=== PATIENT | female | born 1955 | race Caucasian/White ===

== ENCOUNTER 2017-11-26 15:27 | Emergency (ER) | payer OTHER ==
[2017-11-26] MEDS ORDERED: Albuterol/Ipratropium 3.0-0.5 MG/3 ML Neb Soln NEB ONE (15:57)
[2017-11-26] MEDS ORDERED: methylPREDNISolone Sodium Succinate 125 MG/2 ML SDV IVPUSH ONE (15:57)
[2017-11-26] MEDS ORDERED: Oseltamivir 75 MG Cap PO ONE (15:58)
--- NOTE | 2017-11-26 16:00 | EDM.PDOC ---
ED HPI GENERAL MEDICAL PROBLEM - General Chief Complaint: Respiratory Problem Stated Complaint: INFLU A POSITIVE AND SOB Time Seen by Provider: 11/26/17 15:46 Source of Information: Reports: Patient, Family History Limitations: Reports: Respiratory Distress - History of Present Illness INITIAL COMMENTS - FREE TEXT/NARRATIVE: 62 years old w f with COPD, smoker, was transferred from [facility] to the ed due to SOB and testing pos for influenza A. An arrival to the ed. Pt could speac 2- 3 word sentences, had exp wheezing with poor air movement and occ a nonprod cough. Puls ox was 92. Pt was on home O2 in the past. Pt had a tmep of 102 at the clinic. No N/V/D or any other acute med. issues. Her mom and passed recently away. BP 120/71 pulse 123 Temp 39.1 RR 24 Pulse ox 93% Onset Date: 11/24/17 Onset Time: 14:00 Duration: Day(s):, Getting Worse, Intermittent Location: Reports: Chest Quality: Reports: Same as Previous Episode (getting) Severity: Moderate Improves with: Reports: Medication Worsens with: Reports: Movement Context: Reports: Sick Contact (Influenza A), Other Associated Symptoms: Reports: Cough, Shortness of Breath Generalized Pain Score (Numeric/FACES): 7 - Related Data Allergies Allergy/AdvReac Type Severity Reaction Status Date / Time amoxicillin [From Augmentin] Allergy Diarrhea Verified 11/26/17 15:40 clavulanic acid Allergy Diarrhea Verified 11/26/17 15:40 [From Augmentin] Home Meds: Home Meds Albuterol Sulfate 2.5 mg IH Q4HR PRN #1 box 11/26/17 [Rx] Escitalopram [Lexapro] 20 mg PO BEDTIME 11/26/17 [History] Levothyroxine Sodium [Synthroid] 200 mcg DAILY 11/26/17 [History] Nortriptyline 25 mg PO BEDTIME 11/26/17 [History] Oseltamivir [Tamiflu] 75 mg PO BID #9 cap 11/26/17 [Rx] Valsartan/Hydrochlorothiazide [Valsartan-Hctz 160-25 mg Tab] 1 tab DAILY [History] Zolpidem [Ambien] 5 mg PO BEDTIME PRN 11/26/17 [History] predniSONE [Prednisone] 20 mg PO BID #6 tablet 11/26/17 [Rx] predniSONE [Prednisone] 20 mg PO DAILY #3 tablet 11/26/17 [Rx] rOPINIRole [Requip] 2 mg PO BEDTIME 11/26/17 [History] Past Medical History HEENT History: Reports: None Cardiovascular History: Reports: Hypertension Respiratory History: Reports: COPD, Pneumonia, Recurrent Genitourinary History: Reports: None 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/BYN History: G3 Musculoskeletal History: Reports: Arthritis, Back Pain, Chronic, Neck Pain, Chronic Psychiatric History: Reports: Anxiety, Depression, Panic Attack Endocrine/Metabolic History: Reports: Hypothyroidism, Obesity/BMI 30+ Hematologic History: Reports: Anemia - Infectious Disease History Infectious Disease History: Reports: Chicken Pox - Past Surgical History HEENT Surgical History: Reports: Oral Surgery Cardiovascular Surgical History: Reports: None Respiratory Surgical History: Reports: None GI Surgical History: Reports: Appendectomy Female Surgical History: Reports: Section, Hysterectomy, Salpingo- Oophorectomy Musculoskeletal Surgical History: Reports: Joint Replacement Other Musculoskeletal Surgeries/Procedures:: R knee replacement Social & Family History - Family History Family Medical History: Noncontributory ED ROS GENERAL - Review of Systems Review Of Systems: See Below Constitutional: Reports: No Symptoms HEENT: Reports: No Symptoms Respiratory: Reports: Shortness of Breath, Cough Cardiovascular: Reports: No Symptoms Endocrine: Reports: No Symptoms GI/Abdominal: Reports: No Symptoms : Reports: No Symptoms Musculoskeletal: Reports: No Symptoms Skin: Reports: No Symptoms Neurological: Reports: No Symptoms Psychiatric: Reports: No Symptoms Hematologic/Lymphatic: Reports: No Symptoms Immunologic: Reports: No Symptoms ED EXAM, GENERAL - Physical Exam Exam: See Below Exam Limited By: Respiratory Distress General Appearance: Alert, WD/WN, Moderate Distress Eye Exam: Bilateral Eye: Normal Inspection Ears: Normal External Exam Ear Exam: Bilateral Ear: Auricle Normal Nose: Normal Inspection, Normal Mucosa, No Blood, Clear Rhinorrhea Throat/Mouth: Normal Inspection, Normal Lips Head: Atraumatic, Normocephalic Neck: Normal Inspection, Supple, Non-Tender, Full Range of Motion Respiratory/Chest: Respiratory Distress, Decreased Breath Sounds, Rhonchi, Wheezing Cardiovascular: Normal Peripheral Pulses, Regular Rate, Rhythm, No Edema, No Gallop, No Rub Peripheral Pulses: 1+: Radial (L) GI/Abdominal: Normal Bowel Sounds, Soft, Non-Tender, No Organomegaly, No Abnormal Bruit (Female) Exam: Deferred Rectal (Female) Exam: Deferred Back Exam: Normal Inspection, Full Range of Motion Extremities: Normal Inspection, Normal Range of Motion, Non-Tender, No Pedal Edema Neurological: Alert, Oriented, CN II-XII Intact, Normal Cognition, Normal Gait, No Motor/Sensory Deficits Psychiatric: Normal Affect, Normal Mood Skin Exam: Warm Lymphatic: No Adenopathy Course - Vital Signs Text/Narrative:: 62 years old w f with COPD, smoker, was transferred from [facility] to the ed due to SOB and testing pos for influenza A. An arrival to the ed. Pt could speac 2- 3 word sentences, had exp wheezing with poor air movement and occ a nonprod cough. Puls ox was 92. Pt was on home O2 in the past. Pt had a tmep of 102 at the clinic. No N/V/D or any other acute med. issues. Her mom and passed recently away. BP 120/71 pulse 123 Temp 39.1 RR 24 Pulse ox 93% PE: Acute COPD exacerbation with chronic bronchitis. Influenza A positive. Imaging: CXR: COPD, NAD Labs: Nl WBC Na 131 K 3.6 Impression: COPD exacerbation, Hyponatremia, chronic bronchitis Tx: Duoneb x 1 Albuterol Tx nebs x 3, Solu medrol 125 i.v Toradol 30 mg i.v Reexam: Improved 60% Plan: Home nebulizer set up in by [facility] in am the pt's home. Pt will use a inhaler tonight. She was d/c'd with instructions Last Recorded V/S: Last Vital Signs Temp 38.2 C H 11/26/17 17:30 Pulse 123 H 11/26/17 15:46 Resp 20 11/26/17 17:30 BP 123/68 11/26/17 17:30 Pulse Ox 94 L 11/26/17 17:30 - Orders/Labs/Meds Orders: Active Orders 24 hr Category Date Time Status RT Aerosol Therapy [RC] ASDIRECTED Care 11/26/17 15:58 Active RT Aerosol Therapy [RC] ASDIRECTED Care 11/26/17 16:49 Active RT Aerosol Therapy [RC] ASDIRECTED Care 11/26/17 17:30 Active RT Aerosol Therapy [RC] ASDIRECTED Care 11/26/17 18:16 Active Chest 2V [CR] Stat Exams 11/26/17 15:53 Taken CULTURE BLOOD [BC] Urgent Lab 11/26/17 16:05 Received Sodium Chloride 0.9% [Saline Flush] Med 11/26/17 16:29 Active 10 ml FLUSH ASDIRECTED PRN Blood Culture x2 Reflex Set [OM.PC] Urgent Oth 11/26/17 15:56 Ordered Peripheral IV Insertion Adult [OM.PC] Routine Oth 11/26/17 16:29 Ordered Medication Orders Sodium Chloride (Saline Flush) 10 ml FLUSH ASDIRECTED PRN PRN Reason: Keep Vein Open Last Admin: 11/26/17 16:25 Dose: 10 ml Labs: Laboratory Tests 11/26/17 11/26/17 11/26/17 Range/Units 16:05 16:05 16:05 WBC 7.4 (4.5-12.0) X10-3/uL RBC 4.11 (3.23-5.20) x10(6)uL Hgb 12.6 (11.5-15.5) g/dL Hct 37.2 (30.0-51.3) % MCV 90.5 (80-96) fL MCH 30.6 (27.7-33.6) pg MCHC 33.8 (32.2-35.4) g/dL RDW 13.0 (11.5-15.5) % Plt Count 230 (125-369) X10(3)uL MPV 10.0 (7.4-10.4) fL Neut % (Auto) 84.9 H (46-82) % Lymph % (Auto) 7.1 L (13-37) % [place] % (Auto) 5.8 (4-12) % Eos % (Auto) 0 L (1.0-5.0) % Baso % (Auto) 2 (0-2) % Neut # (Auto) 6.4 (1.6-8.3) # Lymph # (Auto) 0.5 L (0.6-5.0) # [place] # (Auto) 0.4 (0.0-1.3) # Eos # (Auto) 0.0 (0.0-0.8) # Baso # (Auto) 0.1 (0.0-0.2) # PT 10.5 (8.7-11.1) INR 1.04 (0.89-1.13) Sodium 131 L (135-145) mmol/L Potassium 3.6 (3.5-5.3) mmol/L Chloride 96 L (100-110) mmol/L Carbon Dioxide 22 (21-32) mmol/L BUN 13 (7-18) mg/dL Creatinine 0.9 (0.55-1.02) mg/dL Est Cr Clr Drug Dosing TNP Estimated GFR (MDRD) > 60 (>60) BUN/Creatinine Ratio 14.4 (9-20) Glucose 114 (80-116) mg/dL Lactic Acid (0.4-2.2) mmol/L Calcium 9.1 (8.6-10.2) mg/dL Urine Color (YELLOW) Urine Appearance (CLEAR) Urine pH (5.0-6.5) Ur Specific [place] (1.010-1.025) Urine Protein (NEGATIVE) mg/dL Urine Glucose (UA) (NEGATIVE) mg/dL Urine Ketones (NEGATIVE) mg/dL Urine Occult Blood (NEGATIVE) Urine Nitrite (NEGATIVE) Urine Bilirubin (NEGATIVE) Urine Urobilinogen (NEGATIVE) mg/dL Ur Leukocyte Esterase (NEGATIVE) Urine RBC (0) Urine WBC (0) Ur Squamous Epith Cells (NS,R,O) Urine Bacteria (NS) Hyaline Casts (NS) Urine Mucus (NS) 11/26/17 11/26/17 Range/Units 16:05 16:41 WBC (4.5-12.0) X10-3/uL RBC (3.23-5.20) x10(6)uL Hgb (11.5-15.5) g/dL Hct (30.0-51.3) % MCV (80-96) fL MCH (27.7-33.6) pg MCHC (32.2-35.4) g/dL RDW (11.5-15.5) % Plt Count (125-369) X10(3)uL MPV (7.4-10.4) fL Neut % (Auto) (46-82) % Lymph % (Auto) (13-37) % [place] % (Auto) (4-12) % Eos % (Auto) (1.0-5.0) % Baso % (Auto) (0-2) % Neut # (Auto) (1.6-8.3) # Lymph # (Auto) (0.6-5.0) # [place] # (Auto) (0.0-1.3) # Eos # (Auto) (0.0-0.8) # Baso # (Auto) (0.0-0.2) # PT (8.7-11.1) INR (0.89-1.13) Sodium (135-145) mmol/L Potassium (3.5-5.3) mmol/L Chloride (100-110) mmol/L Carbon Dioxide (21-32) mmol/L BUN (7-18) mg/dL Creatinine (0.55-1.02) mg/dL Est Cr Clr Drug Dosing Estimated GFR (MDRD) (>60) BUN/Creatinine Ratio (9-20) Glucose (80-116) mg/dL Lactic Acid 0.7 (0.4-2.2) mmol/L Calcium (8.6-10.2) mg/dL Urine Color Yellow (YELLOW) Urine Appearance Clear (CLEAR) Urine pH 5.0 (5.0-6.5) Ur Specific [place] 1.020 (1.010-1.025) Urine Protein Trace (NEGATIVE) mg/dL Urine Glucose (UA) Normal (NEGATIVE) mg/dL Urine Ketones Negative (NEGATIVE) mg/dL Urine Occult Blood Negative (NEGATIVE) Urine Nitrite Negative (NEGATIVE) Urine Bilirubin Small H (NEGATIVE) Urine Urobilinogen Normal (NEGATIVE) mg/dL Ur Leukocyte Esterase Negative (NEGATIVE) Urine RBC 0-5 (0) Urine WBC 0-5 (0) Ur Squamous Epith Cells Moderate H (NS,R,O) Urine Bacteria Moderate H (NS) Hyaline Casts Moderate H (NS) Urine Mucus Moderate H (NS) Meds: Medications Generic Name Dose Route Start Last Admin Trade Name Freq PRN Reason Stop Dose Admin Sodium Chloride 10 ml 11/26/17 16:29 11/26/17 16:25 Saline Flush FLUSH 10 ml ASDIRECTED PRN Administration Keep Vein Open Discontinued Medications Generic Name Dose Route Start Last Admin Trade Name Freq PRN Reason Stop Dose Admin Albuterol 2.5 mg 11/26/17 16:48 11/26/17 16:53 Proventil Neb Soln [facility] 11/26/17 16:49 2.5 mg ONETIME STA Administration Albuterol 2.5 mg 11/26/17 17:30 11/26/17 17:35 Proventil Neb Soln [facility] 11/26/17 17:31 2.5 mg ONETIME STA Administration Albuterol 2.5 mg 11/26/17 18:16 11/26/17 18:24 Proventil Neb Soln [facility] 11/26/17 18:17 2.5 mg ONETIME STA Administration Albuterol/Ipratropium 3 ml 11/26/17 15:57 11/26/17 16:21 Duoneb 3.0-0.5 Mg/3 Ml [facility] 11/26/17 15:58 3 ml ONETIME ONE Administration Ketorolac Tromethamine 30 mg 11/26/17 16:12 11/26/17 16:26 Toradol IVPUSH 11/26/17 16:13 30 mg ONETIME ONE Administration Methylprednisolone Sodium Succinate 125 mg 11/26/17 15:57 11/26/17 16:28 Solu-Medrol IVPUSH 11/26/17 15:58 125 mg ONETIME ONE Administration Oseltamivir Phosphate 75 mg 11/26/17 15:58 11/26/17 16:20 Tamiflu PO 11/26/17 15:59 75 mg ONETIME ONE Administration Departure - Departure Time of Disposition: 19:06 Disposition: Home, Self-Care 01 Condition: Good Clinical Impression: COPD (chronic obstructive pulmonary disease) with chronic bronchitis - Discharge Information Prescriptions: Albuterol Sulfate 2.5 mg IH Q4HR PRN #1 box PRN Reason: for sorthess of breath Oseltamivir [Tamiflu] 75 mg PO BID #9 cap predniSONE [Prednisone] 20 mg PO DAILY #3 tablet predniSONE [Prednisone] 20 mg PO BID #6 tablet Instructions: Chronic Obstructive Pulmonary Disease Exacerbation, [id number] , Influenza, Adult, [id number] Referrals: 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 Please use Albuterol inhaler 2 puffs every 4 hours while a wake as needed for breathing/ wheezing, please take Prednisone 40 mg daily for 3 days, then 20 mg daily for 3 days. Please come back to the ed if your symptoms get worse acutely. Tamiflu 75mg twice a day as recommended until gone. Please follow up with your PMD at end of week for recheck. please come back to the ED if your symptoms get worse acutely. Motrin for pain and temp, increase water intake. - My Orders Last 24 Hours: My Active Orders 11/26/17 15:53 Chest 2V [CR] Stat 11/26/17 15:56 Blood Culture x2 Reflex Set [OM.PC] Urgent 11/26/17 15:58 RT Aerosol Therapy [RC] ASDIRECTED 11/26/17 16:05 CULTURE BLOOD [BC] Urgent 11/26/17 16:29 Sodium Chloride 0.9% [Saline Flush] 10 ml FLUSH ASDIRECTED PRN Peripheral IV Insertion Adult [OM.PC] Routine 11/26/17 16:49 RT Aerosol Therapy [RC] ASDIRECTED 11/26/17 17:30 RT Aerosol Therapy [RC] ASDIRECTED 11/26/17 18:16 RT Aerosol Therapy [RC] ASDIRECTED - Assessment/Plan Last 24 Hours: My Active Orders 11/26/17 15:53 Chest 2V [CR] Stat 11/26/17 15:56 Blood Culture x2 Reflex Set [OM.PC] Urgent 11/26/17 15:58 RT Aerosol Therapy [RC] ASDIRECTED 11/26/17 16:05 CULTURE BLOOD [BC] Urgent 11/26/17 16:29 Sodium Chloride 0.9% [Saline Flush] 10 ml FLUSH ASDIRECTED PRN Peripheral IV Insertion Adult [OM.PC] Routine 11/26/17 16:49 RT Aerosol Therapy [RC] ASDIRECTED 11/26/17 17:30 RT Aerosol Therapy [RC] ASDIRECTED 11/26/17 18:16 RT Aerosol Therapy [RC] ASDIRECTED
[2017-11-26] MEDS ORDERED: Ketorolac 30 MG/ML SDV IVPUSH ONE (16:12)
[2017-11-26] MEDS ORDERED: Sodium Chloride 0.9% 10 ML Syringe FLUSH PRN (16:29)
[2017-11-26] MEDS ORDERED: Albuterol 0.083% 2.5 MG/3 ML Neb Soln NEB STA ×3 (16:48→18:16)
[2017-11-26] MEDS ORDERED: Albuterol 8 GM Inhaler INH ONE (18:58)
--- NOTE | 2017-11-27 11:09 | CR ---
INDICATION: Short of breath. CHEST: Two PA views and a lateral view of the chest, 11/26/2017, were compared with 04/23/2017 and 01/07/2009. The heart remains normal in size and shape. The aorta is tortuous with calcification in the arch. Multiple rib fractures are noted in the lateral right ribs, new compared with the previous study. These are healed in appearance. A definite active infiltrate or effusion was not identified. Interdigitation of the right hemidiaphragm leaf, minimally prominent AP diameter , and slightly hyperaerated lungs raise question of a mild degree of COPD, which should be correlated clinically. IMPRESSION: No definite acute process - findings as noted above. Little change suggested compared with 04/23/2017 except to note rib fractures on the right that appear healed. MTDD
== END 2017-11-26 19:09 | disposition home or self-care (01) ==
LOC: FB.ED 15:27
DX: J44.1 Chronic obstructive pulmonary disease with (acute) exacerbation (principal); I10 Essential (primary) hypertension; E66.9 Obesity, unspecified; E03.9 Hypothyroidism, unspecified; E87.1 Hypo-osmolality and hyponatremia; Z88.1 Allergy status to other antibiotic agents; Z88.8 Allergy status to other drugs, medicaments and biological substances; Z79.899 Other long term (current) drug therapy
CPT/HCPCS: 36415; 71046; 80048; 81001; 83605; 85025; 85610; 87040; 87804; 94640; 96374; 96375; 99285; A9270; J1885; J2930; J7050; J7620

== ENCOUNTER 2020-09-22 14:58 | Inpatient (IN) | payer OTHER ==
[2020-09-22] MEDS ORDERED: Zolpidem 5 MG Tab PO PRN (16:25)
[2020-09-22] MEDS ORDERED: Albuterol 8 GM Inhaler INH PRN (16:26)
--- NOTE | 2020-09-22 16:28 | PCM.HP.2 ---
H&P History of Present Illness - General Date of Service: 09/22/20 Admit Problem/Dx: Admission Diagnosis/Problem Admission Diagnosis/Problem Idiopathic thrombocytopenic purpura Source of Information: Patient, Provider - History of Present Illness Initial Comments - Free Text/Narative: Elizabeth is a direct admission from the [facility] for thrombocytopenia, her platelets were 6 today in clinic. She has had progressive fatigue, increased bruising over the past few weeks. She gets tired easily with any activity. She has no nosebleeds, no bleeding from her gums, no coughing up blood, vomiting blood, blood in her stools or urine. No joint swelling. No vaginal bleeding. States her bruises do not hurt. She even has bruises from her slippers which she says are not even tight on her feet. No fevers, chills, sore throat, chest pain, shortness of breath, vomiting, diarrhea. History of Idiopathic thrombocytopenic purpura(ITP) diagnosed in Nov 2019, she was hospitalized for platelets of 2 at that time, she had ultrasound and given prednisone until her platelets got to 7, had no bleeding so did not get any FFP or IVIG. She has been off prednisone for about 6 months. She was due to see Hematology in Dec but the office notes were not available. Called into [facility] who are on diversion for admission to speak with Hematology as far as recommendations. Generalized Pain Score (Numeric/FACES): 3 - Related Data Allergies/Adverse Reactions: Allergies Allergy/AdvReac Type Severity Reaction Status Date / Time amoxicillin [From Augmentin] Allergy Diarrhea Verified 11/26/17 15:40 clavulanic acid Allergy Diarrhea Verified 11/26/17 15:40 [From Augmentin] Home Medications: Home Meds Levothyroxine Sodium [Synthroid] 200 mcg DAILY 11/26/17 [History] Nortriptyline 100 mg PO BEDTIME 11/26/17 [History] Zolpidem [Ambien] 5 mg PO BEDTIME PRN 11/26/17 [History] rOPINIRole [Requip] 2 mg PO BEDTIME 11/26/17 [History] Albuterol [Ventolin HFA] 1 - 2 puff INH Q4H PRN 09/22/20 [History] Escitalopram Oxalate 30 mg PO BEDTIME 09/22/20 [History] Mometasone/Formoterol [Dulera 200 MCG/5 MCG] 2 puff INH BID 09/22/20 [History] Valsartan/Hydrochlorothiazide [Valsartan-Hctz 80-12.5 mg Tab] 1 tab PO DAILY 09/22/20 [History] clonazePAM [Clonazepam] 1 mg PO DAILY PRN 09/22/20 [History] Past Medical History HEENT History: Reports: None Cardiovascular History: Reports: Hypertension Respiratory History: Reports: COPD, Pneumonia, Recurrent Genitourinary History: Reports: 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: G3 Musculoskeletal History: Reports: Arthritis, Back Pain, Chronic, Neck Pain, Chronic Psychiatric History: Reports: Anxiety, Depression, Panic Attack Endocrine/Metabolic History: Reports: Hypothyroidism, Obesity/BMI 30+ Hematologic History: Reports: Anemia, Idiopathic Thrombocytopenia - Infectious Disease History Infectious Disease History: Reports: Chicken Pox, Measles - Past Surgical History HEENT Surgical History: Reports: Oral Surgery Cardiovascular Surgical History: Reports: None Respiratory Surgical History: Reports: None GI Surgical History: Reports: Appendectomy Female Surgical History: Reports: Section, Hysterectomy, Salpingo- Oophorectomy Musculoskeletal Surgical History: Reports: Joint Replacement Other Musculoskeletal Surgeries/Procedures:: R knee replacement Social & Family History - Family History Family Medical History: No Pertinent Family History - Tobacco Use Tobacco Use Status *Q: Current Every Day Tobacco User Years of Tobacco use: 40 Packs/Tins Daily: 0.5 Used Tobacco, but Quit: No Second Hand Smoke Exposure: Yes - Caffeine Use Caffeine Use: Reports: Coffee - Alcohol Use Days Per Week of Alcohol Use: 1 Number of Drinks Per Day: 1 Total Drinks Per Week: 1 - Recreational Drug Use Recreational Drug Use: No H&P Review of Systems - Review of Systems: Review Of Systems: Comprehensive ROS is negative, except as noted in HPI. Exam - Exam Exam: See Below - Vital Signs Weight: 203 lb 6 oz - Exam General: Alert, Oriented, Cooperative. No: Mild Distress HEENT: PERRLA, Conjunctiva Clear, EACs Clear, EOMI, Hearing Intact, Mucosa Moist & [place], Nares Patent, Posterior Pharynx Clear, TMs Clear, Other (petechiae on hard palate) Neck: Supple, Trachea Midline. No: Lymphadenopathy Lungs: Clear to Auscultation, Normal Respiratory Effort Cardiovascular: Regular Rate, Regular Rhythm GI/Abdominal Exam: Normal Bowel Sounds, Soft, Non-Tender, No Distention (Female) Exam: Deferred Rectal (Female) Exam: Deferred Extremities: No Pedal Edema, Normal Capillary Refill. No: Joint Swelling Peripheral Pulses: 2+: Radial (L), Radial (R), Posterior Tibial (L), Posterior Tibial (R), Dorsalis Pedis (L), Dorsalis Pedis (R) Skin: Petechia (palate), Ecchymosis (scattered throughout her extremities, back, abdomen, hands & feet, non-tender) Neuro Extensive - Mental Status: Alert, Oriented x3, Normal Mood/Affect *Q Meaningful Use (ADM) - VTE *Q VTE Pharmacological Contraindications *Q: Bld Coagulation Disorder - VTE Risk Assess *Q Each Risk Factor Represents 2 Points: Age 60 - 74 Years Total Score 2 Point Risk Factors: 2 Each Risk Factor Represents 3 Points: None Total Score 3 Point Risk Factors: 0 Each Risk Factor Represents 5 Points: None Total Score 5 Point Risk Factors: 0 - Problem List (1) Chronic ITP (idiopathic thrombocytopenic purpura) SNOMED Code(s): 32117569 ICD Code: D69.3 - IMMUNE THROMBOCYTOPENIC PURPURA Status: Chronic Current Visit: Yes (2) DONATO (generalized anxiety disorder) SNOMED Code(s): 36415125 ICD Code: F41.1 - GENERALIZED ANXIETY DISORDER Status: Chronic Current Visit: Yes (3) Hypothyroidism SNOMED Code(s): 50374661 ICD Code: E03.9 - HYPOTHYROIDISM, UNSPECIFIED Status: Chronic Current Visit: Yes (4) Essential (primary) hypertension SNOMED Code(s): 08043613 ICD Code: I10 - ESSENTIAL (PRIMARY) HYPERTENSION Status: Chronic Current Visit: Yes (5) Dyslipidemia SNOMED Code(s): 107595871 ICD Code: E78.5 - HYPERLIPIDEMIA, UNSPECIFIED Status: Chronic Current Visit: Yes (6) Insomnia SNOMED Code(s): 651120323 ICD Code: G47.00 - INSOMNIA, UNSPECIFIED Status: Chronic Current Visit: Yes (7) Tobacco use disorder SNOMED Code(s): 096888194 ICD Code: F17.200 - NICOTINE DEPENDENCE, UNSPECIFIED, UNCOMPLICATED Status: Chronic Current Visit: Yes (8) COPD (chronic obstructive pulmonary disease) with chronic bronchitis SNOMED Code(s): 532457778 ICD Code: J44.9 - CHRONIC OBSTRUCTIVE PULMONARY DISEASE, UNSPECIFIED Status: Chronic Current Visit: No Problem List Initiated/Reviewed/Updated: Yes Orders Last 24hrs: Active Orders 24 hr Category Date Time Status Patient Status [ADT] Routine ADT 09/22/20 16:08 Ordered Ambulate [RC] PER UNIT ROUTINE Care 09/22/20 16:10 Ordered Oxygen Therapy [RC] PRN Care 09/22/20 16:08 Ordered Up ad Damaris [RC] ASDIRECTED Care 09/22/20 16:08 Ordered VTE/DVT Education [RC] Per Unit Routine Care 09/22/20 16:08 Ordered Vital Signs [RC] Q4H Care 09/22/20 16:08 Ordered Regular Diet [DIET] Diet 09/22/20 Dinner Ordered CBC WITH AUTO DIFF [HEME] Routine Lab 09/23/20 06:00 Ordered Albuterol [Ventolin HFA] Med 09/22/20 16:17 Ordered 1 - 2 puff INH Q4H PRN Escitalopram Oxalate [Escitalopram Oxalate] Med 09/22/20 21:00 Ordered 30 mg PO BEDTIME Levothyroxine Sodium [Synthroid] Med 09/23/20 09:00 Ordered 200 mcg PO DAILY Mometasone/Formoterol [Dulera 200 MCG/5 MCG] Med 09/22/20 21:00 Ordered 2 puff INH BID Nortriptyline [Nortriptyline] Med 09/22/20 21:00 Ordered 100 mg PO BEDTIME Valsartan/Hydrochlorothiazide [Valsartan-Hctz 80-12.5 Med 09/23/20 09:00 Ordered mg Tab] 1 tab PO DAILY Zolpidem [Ambien] Med 09/22/20 16:17 Ordered 5 mg PO BEDTIME PRN clonazePAM [Clonazepam] Med 09/22/20 16:17 Ordered 1 mg PO DAILY PRN rOPINIRole [Requip] Med 09/22/20 21:00 Ordered 2 mg PO BEDTIME VTE Pharmacological Contraindications [AST] Per Unit Oth 09/22/20 16:08 Ordered Routine Resuscitation Status Routine Resus Stat 09/22/20 16:08 Ordered Medication Orders Non-Formulary Medication (Albuterol [Ventolin Hfa]) 1 - 2 puff INH Q4H PRN PRN Reason: Shortness of Breath Non-Formulary Medication (Clonazepam [Clonazepam]) 1 mg PO DAILY PRN PRN Reason: Anxiety Non-Formulary Medication (Escitalopram Oxalate [Escitalopram Oxalate]) 30 mg PO BEDTIME VOLODYMYR Non-Formulary Medication (Levothyroxine Sodium [Synthroid]) 200 mcg PO DAILY VOLODYMYR Non-Formulary Medication (Mometasone/Formoterol [Dulera 200 Mcg/5 Mcg]) 2 puff INH BID VOLODYMYR Non-Formulary Medication (Nortriptyline [Nortriptyline]) 100 mg PO BEDTIME VOLODYMYR Non-Formulary Medication (Ropinirole [Requip]) 2 mg PO BEDTIME VOLODYMYR Non-Formulary Medication (Valsartan/Hydrochlorothiazide [Valsartan-Hctz 80-12.5 Mg Tab]) 1 tab PO DAILY VOLODYMYR Non-Formulary Medication (Zolpidem [Ambien]) 5 mg PO BEDTIME PRN PRN Reason: Insomnia Assessment/Plan Comment:: 1. Admit for observation for ITP. Consulted pharmacy: will do Dexamethasone 40 mg daily x 4 days as it has a quicker platelet response and does not require a taper. Still awaiting call back from Hematology. 2. Continue home medications for chronic conditions. 3. Regular diet. 4. Activity: as tolerated. 5. Covid NEG so normal precautions. 6. DVT: ambulate, anticoagulation contraindicated. 7. CODE: FULL. - Mortality Measure Prognosis:: Good
[2020-09-22] MEDS: Dexamethasone 4 MG Tab PO SCH (17:38)
[2020-09-22] MEDS: Formoterol/Mometasone 200-5 MCG 8.8 GM Inhaler IH SCH (20:12)
[2020-09-22] MEDS: Nortriptyline 25 MG Cap PO SCH (20:14)
[2020-09-22] MEDS: Escitalopram 10 MG Tab PO SCH (20:14)
[2020-09-22] MEDS: rOPINIRole 1 MG Tab PO SCH (20:17)
[2020-09-23] MEDS: Acetaminophen 325 MG Tab PO PRN ×3 (06:37→23:28)
[2020-09-23] MEDS: Dexamethasone 4 MG Tab PO SCH (08:25)
[2020-09-23] MEDS: Formoterol/Mometasone 200-5 MCG 8.8 GM Inhaler IH SCH ×2 (08:25→20:04)
[2020-09-23] MEDS: Hydrochlorothiazide 12.5 MG Cap PO SCH (08:26)
[2020-09-23] MEDS ORDERED: Acetaminophen/Aspirin/Caffeine 250-250-65 MG Tab PO ONE (12:48)
[2020-09-23] MEDS: ClonazePAM 1 MG Tab PO PRN (14:48)
[2020-09-23] MEDS ORDERED: Sodium Chloride 0.9% 250 ML IV SCH (16:00)
--- NOTE | 2020-09-23 17:47 | PCM.PN ---
- General Info Date of Service: 09/23/20 Subjective Update: She had headache this morning, drank some caffeine and took Tylenol was a little better. She states she gets headaches all the time, her daughter Nakita did confirm this. She states this headache is like all her other headaches, it is not different. She admits to drinking a lot of coffee. She had refused nicotine patch as well. She has noticed some new bruising on her hands but nothing else. No bleeding from her gums, nose, hemoptysis, hematemesis, hematuria or vaginal bleeding. no spontaneous joint swelling. Neuro checks have been normal. - Patient Data Vitals - Most Recent: Last Vital Signs Temp 98.3 F 09/23/20 16:00 Pulse 98 09/23/20 16:00 Resp 17 09/23/20 16:00 BP 147/98 H 09/23/20 16:00 Pulse Ox 97 09/23/20 16:00 Weight - Most Recent: 203 lb 6 oz Lab Results Last 24 Hours: Laboratory Results - last 24 hr 09/23/20 09/23/20 Range/Units 06:20 13:24 WBC 3.8 (3.0-10.3) x10-3/uL RBC 4.66 (3.60-5.20) x10(6)uL Hgb 13.7 (11.4-15.5) g/dL Hct 41.2 (34.2-48.2) % MCV 88.4 (76.7-100.5) fL MCH 29.5 (23.9-33.9) pg MCHC 33.3 (31.9-34.8) g/dL RDW 14.3 (12.3-16.5) % Plt Count 5 L* 6 L* (151-488) x10(3)uL MPV 12.9 H (7.1-12.4) fL Neut % (Auto) 82.7 H (30.8-76.2) % Lymph % (Auto) 16.2 L (18.4-52.1) % Cache % (Auto) 1.0 L (4.4-15.7) % Eos % (Auto) 0.0 L (0.6-8.1) % Baso % (Auto) 0.1 L (0.2-1.5) % Neut # (Auto) 3.1 (1.5-6.3) x10-3/uL Lymph # (Auto) 0.6 L (1.0-4.4) x10-3/uL Cache # (Auto) 0.0 L (0.3-1.0) x10-3/uL Eos # (Auto) 0.0 (0.0-0.8) x10-3/uL Baso # (Auto) 0.0 (0.0-0.1) x10-3/uL Med Orders - Current: Current Medications Acetaminophen (Tylenol) 650 mg PO Q4H PRN PRN Reason: Headache Last Admin: 09/23/20 06:37 Dose: 650 mg Documented by: Albuterol (Ventolin Hfa) 0 gm INH Q4H PRN PRN Reason: Shortness of Breath Clonazepam (Klonopin) 1 mg PO DAILY PRN PRN Reason: Anxiety Last Admin: 09/23/20 14:48 Dose: 1 mg Documented by: Dexamethasone (Dexamethasone) 40 mg PO DAILY [facility] Stop: 09/26/20 17:01 Last Admin: 09/23/20 08:25 Dose: 40 mg Documented by: Escitalopram Oxalate (Lexapro) 30 mg PO BEDTIME [facility] Last Admin: 09/22/20 20:14 Dose: 30 mg Documented by: Hydrochlorothiazide (Hydrochlorothiazide) 12.5 mg PO DAILY [facility] Last Admin: 09/23/20 08:26 Dose: 12.5 mg Documented by: Sodium Chloride (Normal Saline) 250 mls @ 100 mls/hr IV ASDIRECTED [facility] Levothyroxine Sodium (Levothyroxine) 200 mcg PO DAILY@0600 [facility] Last Admin: 09/23/20 06:10 Dose: 200 mcg Documented by: Mometasone Furoate/Formoterol Fumar (Dulera 200-5 Mcg) 2 puff IH BID [facility] Last Admin: 09/23/20 08:25 Dose: 2 puff Documented by: Nortriptyline HCl (Nortriptyline) 100 mg PO BEDTIME [facility] Last Admin: 09/22/20 20:14 Dose: 100 mg Documented by: Ropinirole HCl (Requip) 2 mg PO BEDTIME [facility] Last Admin: 09/22/20 20:17 Dose: 2 mg Documented by: Valsartan (Diovan) 80 mg PO DAILY [facility] Last Admin: 09/23/20 08:26 Dose: 80 mg Documented by: Zolpidem Tartrate (Ambien) 5 mg PO BEDTIME PRN PRN Reason: Insomnia Discontinued Medications Acetaminophen/Aspirin/Caffeine (Excedrin Extra Strength) 2 tab PO ONETIME ONE Stop: 09/23/20 12:49 Last Admin: 09/23/20 12:59 Dose: 2 tab Documented by: - Exam General: Alert, Oriented, Cooperative, No Acute Distress HEENT: Pupils Equal, Pupils Reactive Lungs: Clear to Auscultation, Normal Respiratory Effort Cardiovascular: Regular Rate, Regular Rhythm GI/Abdominal Exam: Normal Bowel Sounds, Soft, Non-Tender, No Distention Skin: Ecchymosis (scattered throughout, some new ones where she had blood draw and on left hand. No evidence of bleeding.) Neurological: No New Focal Deficit, Normal Gait, Normal Speech, Cranial Nerves Intact Sepsis Event Note - Evaluation Sepsis Screening Result: No Definite Risk - Focused Exam Vital Signs: Vital Signs Temp Pulse Resp BP BP Pulse Ox 09/23/20 16:00 98.3 F 98 17 147/98 H 97 09/23/20 08:26 116/77 09/23/20 08:00 97.9 F 97 16 118/77 95 - Problem List & Annotations (1) Chronic ITP (idiopathic thrombocytopenic purpura) SNOMED Code(s): 89928697 Code(s): D69.3 - IMMUNE THROMBOCYTOPENIC PURPURA Status: Chronic Current Visit: Yes (2) DONATO (generalized anxiety disorder) SNOMED Code(s): 36439128 Code(s): F41.1 - GENERALIZED ANXIETY DISORDER Status: Chronic Current Visit: Yes (3) Hypothyroidism SNOMED Code(s): 80356581 Code(s): E03.9 - HYPOTHYROIDISM, UNSPECIFIED Status: Chronic Current Visit: Yes (4) Essential (primary) hypertension SNOMED Code(s): 03564431 Code(s): I10 - ESSENTIAL (PRIMARY) HYPERTENSION Status: Chronic Current Visit: Yes (5) Dyslipidemia SNOMED Code(s): 999798586 Code(s): E78.5 - HYPERLIPIDEMIA, UNSPECIFIED Status: Chronic Current Visit: Yes (6) Insomnia SNOMED Code(s): 449918947 Code(s): G47.00 - INSOMNIA, UNSPECIFIED Status: Chronic Current Visit: Yes (7) Tobacco use disorder SNOMED Code(s): 060730674 Code(s): F17.200 - NICOTINE DEPENDENCE, UNSPECIFIED, UNCOMPLICATED Status: Chronic Current Visit: Yes (8) COPD (chronic obstructive pulmonary disease) with chronic bronchitis SNOMED Code(s): 241811364 Code(s): J44.9 - CHRONIC OBSTRUCTIVE PULMONARY DISEASE, UNSPECIFIED Status: Chronic Current Visit: No - Problem List Review Problem List Initiated/Reviewed/Updated: Yes - My Orders Last 24 Hours: My Active Orders 09/22/20 17:00 dexAMETHasone 40 mg PO DAILY 09/22/20 21:00 Escitalopram [Lexapro] 30 mg PO BEDTIME Mometasone/Formoterol [Dulera 200-5 MCG] 2 puff IH BID Nortriptyline 100 mg PO BEDTIME rOPINIRole [Requip] 2 mg PO BEDTIME 09/23/20 06:00 Levothyroxine 200 mcg PO DAILY@0600 09/23/20 06:11 Acetaminophen [TylenoL] 650 mg PO Q4H PRN 09/23/20 09:00 Valsartan [Diovan] 80 mg PO DAILY hydroCHLOROthiazide 12.5 mg PO DAILY 09/23/20 15:35 Neuro Check [RC] Q8HR 09/23/20 15:50 PLATELETS APH [BBK] Routine Transfuse Platelets [COMM] Stat 09/23/20 16:00 Sodium Chloride 0.9% [Normal Saline] 250 ml IV ASDIRECTED 09/24/20 06:00 CBC WITH AUTO DIFF [HEME] Routine - Plan Plan:: 1. ITP: Spoke with [facility] he wanted her transferred to higher level of care with hematology services. Spoke with [facility], Hospitalist on did not feel comfortable with her being on regular medical floor, she is on wait list for intermediate care. Advised to try [facility], spoke with Uriel Weinstein/Onc production planner scheduler, he advised continue Dexamethasone 40 mg daily, transfuse 1 unit of platelets tonight, neuro checks every 8 hours. If we did not have IVIG(which we don't have), then she can get IVIG tomorrow there at [facility]. Will call back in the morning with update and to get room placement. Discussed with patient and her daughter Nakita, who is nurse at [facility] [facility] [employer], they were in agreement with plan. Nakita stated she or her daughters could take her up to [place] tomorrow. Nakita is taking her son for orthopedic appoint at 11am, I will call her in the morning once I have more information. 2. Activity: as tolerated, fall precautions. 3. Covid NEG so normal precautions. 4. DVT: ambulate, anticoagulation contraindicated.
[2020-09-23] MEDS: rOPINIRole 1 MG Tab PO SCH (20:02)
[2020-09-23] MEDS: Escitalopram 10 MG Tab PO SCH (20:03)
[2020-09-23] MEDS: Nortriptyline 25 MG Cap PO SCH (20:05)
[2020-09-24] MEDS: ClonazePAM 1 MG Tab PO PRN (00:34)
[2020-09-24] MEDS: Acetaminophen 325 MG Tab PO PRN ×3 (06:11→16:32)
[2020-09-24] MEDS: Nicotine 7 MG/24 Hr Patch TRDERM SCH (09:04)
[2020-09-24] MEDS: Hydrochlorothiazide 12.5 MG Cap PO SCH (09:06)
[2020-09-24] MEDS: Formoterol/Mometasone 200-5 MCG 8.8 GM Inhaler IH SCH ×2 (09:06→20:32)
[2020-09-24] MEDS: Dexamethasone 4 MG Tab PO SCH (09:07)
--- NOTE | 2020-09-24 11:05 | PCM.PN ---
- General Info Date of Service: 09/24/20 Subjective Update: Headache was better last night, worse this morning. Admits to drinking a couple pots of coffee a day and also 5 hour energy drinks the last few weeks because she was so tired. Neuro checks have been normal. Vitals stable. No pain, or bleeding overnight. Platelets were up to 42 this morning after 1 unit of platelets overnight. - Patient Data Vitals - Most Recent: Last Vital Signs Temp 98 F 09/24/20 06:13 Pulse 101 H 09/24/20 06:13 Resp 16 09/24/20 06:13 BP 139/100 H 09/24/20 09:06 Pulse Ox 95 09/24/20 06:13 Weight - Most Recent: 203 lb 6 oz I&O - Last 24 Hours: Intake & Output 09/23/20 09/24/20 09/24/20 22:59 06:59 14:59 Intake Total 0 235 Balance 0 235 Lab Results Last 24 Hours: Laboratory Results - last 24 hr 09/23/20 09/23/20 09/24/20 Range/Units 13:24 15:50 06:00 WBC 12.7 H (3.0-10.3) x10-3/uL RBC 4.22 (3.60-5.20) x10(6)uL Hgb 12.3 (11.4-15.5) g/dL Hct 37.5 (34.2-48.2) % MCV 88.8 (76.7-100.5) fL MCH 29.2 (23.9-33.9) pg MCHC 32.9 (31.9-34.8) g/dL RDW 14.4 (12.3-16.5) % Plt Count 6 L* 42 L (151-488) x10(3)uL MPV 8.2 (7.1-12.4) fL Neut % (Auto) 89.4 H (30.8-76.2) % Lymph % (Auto) 8.0 L (18.4-52.1) % Cherry % (Auto) 2.5 L (4.4-15.7) % Eos % (Auto) 0.0 L (0.6-8.1) % Baso % (Auto) 0.1 L (0.2-1.5) % Neut # (Auto) 11.4 H (1.5-6.3) x10-3/uL Lymph # (Auto) 1.0 (1.0-4.4) x10-3/uL Cherry # (Auto) 0.3 (0.3-1.0) x10-3/uL Eos # (Auto) 0.0 (0.0-0.8) x10-3/uL Baso # (Auto) 0.0 (0.0-0.1) x10-3/uL Blood Type O POSITIVE Med Orders - Current: Current Medications Acetaminophen (Tylenol) 650 mg PO Q4H PRN PRN Reason: Headache Last Admin: 09/24/20 06:11 Dose: 650 mg Documented by: Albuterol (Ventolin Hfa) 0 gm INH Q4H PRN PRN Reason: Shortness of Breath Clonazepam (Klonopin) 1 mg PO DAILY PRN PRN Reason: Anxiety Last Admin: 09/24/20 00:34 Dose: 1 mg Documented by: Dexamethasone (Dexamethasone) 40 mg PO DAILY [facility] Stop: 09/26/20 17:01 Last Admin: 09/24/20 09:07 Dose: 40 mg Documented by: Escitalopram Oxalate (Lexapro) 30 mg PO BEDTIME [facility] Last Admin: 09/23/20 20:03 Dose: 30 mg Documented by: Hydrochlorothiazide (Hydrochlorothiazide) 12.5 mg PO DAILY [facility] Last Admin: 09/24/20 09:06 Dose: 12.5 mg Documented by: Sodium Chloride (Normal Saline) 250 mls @ 100 mls/hr IV ASDIRECTED [facility] Last Admin: 09/23/20 21:30 Dose: 100 mls/hr Documented by: Levothyroxine Sodium (Levothyroxine) 200 mcg PO DAILY@0600 [facility] Last Admin: 09/24/20 06:10 Dose: 200 mcg Documented by: Mometasone Furoate/Formoterol Fumar (Dulera 200-5 Mcg) 2 puff IH BID [facility] Last Admin: 09/24/20 09:06 Dose: 2 puff Documented by: Nicotine (Habitrol) 7 mg TRDERM DAILY [facility] Last Admin: 09/24/20 09:04 Dose: 7 mg Documented by: Nortriptyline HCl (Nortriptyline) 100 mg PO BEDTIME [facility] Last Admin: 09/23/20 20:05 Dose: 100 mg Documented by: Ropinirole HCl (Requip) 2 mg PO BEDTIME [facility] Last Admin: 09/23/20 20:02 Dose: 2 mg Documented by: Valsartan (Diovan) 80 mg PO DAILY [facility] Last Admin: 09/24/20 09:06 Dose: 80 mg Documented by: Zolpidem Tartrate (Ambien) 5 mg PO BEDTIME PRN PRN Reason: Insomnia Last Admin: 09/23/20 23:29 Dose: 5 mg Documented by: Discontinued Medications Acetaminophen/Aspirin/Caffeine (Excedrin Extra Strength) 2 tab PO ONETIME ONE Stop: 09/23/20 12:49 Last Admin: 09/23/20 12:59 Dose: 2 tab Documented by: - Exam General: Alert, Oriented, Cooperative, No Acute Distress HEENT: Pupils Equal, Pupils Reactive, EOMI Lungs: Clear to Auscultation, Normal Respiratory Effort Cardiovascular: Regular Rate, Regular Rhythm GI/Abdominal Exam: Normal Bowel Sounds, Soft, Non-Tender, No Distention Skin: Ecchymosis (scattered throughout, no new ones per patient) Sepsis Event Note - Evaluation Sepsis Screening Result: No Definite Risk - Focused Exam Vital Signs: Vital Signs Temp Temp Pulse Resp BP BP Pulse Ox 09/24/20 09:06 139/100 H 09/24/20 06:13 98 F 101 H 16 140/94 H 95 09/24/20 04:00 98.1 F 93 16 131/86 95 09/24/20 00:30 98 F 99 18 115/68 93 L 09/24/20 00:00 98 F 99 16 122/72 94 L 09/23/20 23:31 98 F 98 16 130/72 94 L - Problem List & Annotations (1) Chronic ITP (idiopathic thrombocytopenic purpura) SNOMED Code(s): 52508536 Code(s): D69.3 - IMMUNE THROMBOCYTOPENIC PURPURA Status: Chronic Current Visit: Yes (2) DONATO (generalized anxiety disorder) SNOMED Code(s): 67666088 Code(s): F41.1 - GENERALIZED ANXIETY DISORDER Status: Chronic Current Visit: Yes (3) Hypothyroidism SNOMED Code(s): 61591102 Code(s): E03.9 - HYPOTHYROIDISM, UNSPECIFIED Status: Chronic Current Visit: Yes (4) Essential (primary) hypertension SNOMED Code(s): 81098003 Code(s): I10 - ESSENTIAL (PRIMARY) HYPERTENSION Status: Chronic Current Visit: Yes (5) Dyslipidemia SNOMED Code(s): 068493348 Code(s): E78.5 - HYPERLIPIDEMIA, UNSPECIFIED Status: Chronic Current Visit: Yes (6) Insomnia SNOMED Code(s): 967182930 Code(s): G47.00 - INSOMNIA, UNSPECIFIED Status: Chronic Current Visit: Yes (7) Tobacco use disorder SNOMED Code(s): 631623380 Code(s): F17.200 - NICOTINE DEPENDENCE, UNSPECIFIED, UNCOMPLICATED Status: Chronic Current Visit: Yes (8) COPD (chronic obstructive pulmonary disease) with chronic bronchitis SNOMED Code(s): 670155356 Code(s): J44.9 - CHRONIC OBSTRUCTIVE PULMONARY DISEASE, UNSPECIFIED Status: Chronic Current Visit: No - Problem List Review Problem List Initiated/Reviewed/Updated: Yes - My Orders Last 24 Hours: My Active Orders 09/23/20 15:35 Neuro Check [RC] Q8HR 09/23/20 15:50 Transfuse Platelets [COMM] Stat 09/23/20 16:00 Sodium Chloride 0.9% [Normal Saline] 250 ml IV ASDIRECTED 09/24/20 09:00 Nicotine [Habitrol] 7 mg TRDERM DAILY 09/24/20 10:17 Patient Status [ADT] Routine 09/24/20 15:30 CBC WITH AUTO DIFF [HEME] Routine - Plan Plan:: 1. ITP: Spoke with Dr Avendano, platelets had come up to 42, she didn't need IVIG today, recheck her platelets later today and if they are decreasing then he would admit tomorrow for IVIG at [facility]. If they would stay stable or go up advised to call him on his cell for recommendations. Continue Dexamethasone 40 mg daily. 2. Activity: as tolerated, fall precautions. 3. Covid NEG so normal precautions. 4. DVT: ambulate, anticoagulation contraindicated.
--- NOTE | 2020-09-24 18:10 | PCM.SN.2 ---
- Free Text/Narrative Note: Platelets dropped slightly to 40, spoke with Dr Avendano he advised to repeat cbc in the morning and if it has further dropped to transfer her for IVIG treatment.
[2020-09-24] MEDS: Escitalopram 10 MG Tab PO SCH (20:33)
[2020-09-24] MEDS: Nortriptyline 25 MG Cap PO SCH (20:34)
[2020-09-24] MEDS: rOPINIRole 1 MG Tab PO SCH (20:34)
[2020-09-25] MEDS: Acetaminophen 325 MG Tab PO PRN ×2 (00:21→06:14)
[2020-09-25] MEDS: Dexamethasone 4 MG Tab PO SCH (10:29)
[2020-09-25] MEDS: Formoterol/Mometasone 200-5 MCG 8.8 GM Inhaler IH SCH (10:30)
[2020-09-25] MEDS: Hydrochlorothiazide 12.5 MG Cap PO SCH (10:31)
[2020-09-25] MEDS: Nicotine 7 MG/24 Hr Patch TRDERM SCH (10:43)
--- NOTE | 2020-09-25 11:39 | PN ---
DATE SEEN: 09/25/2020 SUBJECTIVE: Danielle Mejia is a 64-year-old female seen today for review. Diagnosis of ITP in December 2019. She has been on large dose, but declining doses of prednisone. Provider of record Dr. Avendano, [facility]. Platelets have gone from 5000 to 6000, 41 to 42, and today 48. CBC otherwise unremarkable. Bruising appears to be less. IVIG therapy under consideration. PHYSICAL EXAMINATION: VITAL SIGNS: 36.7, 91, 159/100, 119 is the mean blood pressure, 20, 95%. GENERAL: Bright, alert, awake. Mouth and oropharynx clear. NECK: Benign. Thyroid small. CHEST: Clear in all lung bean. HEART: No ectopy or murmur. ABDOMEN: Benign. Bruising reduced. ASSESSMENT: Symptomatic ITP. PLAN: We will await reply from Dr. Avendano. Did call him at about 10 p.m., left a message on his phone to return to or phone call here. /[id number] /JENS
--- NOTE | 2020-09-25 12:27 | DISCH ---
DISCHARGE DATE: 09/25/2020 DIAGNOSIS: Marked low platelets due to immune thrombocytopenic purpura. HOSPITAL COURSE: Elizabeth Mejia is a 64-year-old female admitted with complicated bruising, intermittent headaches, and a sense of reduced well- being. She has history of ITP dating back to December 2019. I completed courses of corticosteroid therapy. Upon admission, platelets were 5100, repeat on 09/24/2020 x2, 5 and 6. She was given intravenous dexamethasone and a unit of platelets, they raised to 42, [address] Avendano, Oncology [facility] was involved with her care. Spoke to him in the morning of 09/25/2020, comfortable with her to be discharged home with present therapy and intervention. We will make a followup CBC upcoming Monday. DISCHARGE PHYSICAL EXAMINATION: VITAL SIGNS: 144/97, 36.7, 20, and 95. GENERAL: Bright, alert, awake. HEENT: Mouth and oropharynx clear. NECK: Benign. Thyroid small. CHEST: Clear in all lung bean. Distant heart sounds. Soft murmur. ABDOMEN: Benign. EXTREMITIES: Bruising minimal. IMPRESSION: Immune thrombocytopenic purpura with low platelets. PLAN: Much improved, local care. No aspirin or ibuprofen. Headaches have been an issue, caffeine related, may be part of other comorbid issues. Workup if indicated. Plan CBC on 09/28/2020, instructed. /[id number] /JENS
== END 2020-09-25 11:35 | disposition home or self-care (01) | DRG 813 ==
LOC: FB.MS 14:58 → OBSVTOIN 09-24 10:17
PROVIDERS: ADMIT Family Medicine; ATTEND Family Medicine
DX: D69.3 Immune thrombocytopenic purpura (principal); Z88.1 Allergy status to other antibiotic agents; Z79.890 Hormone replacement therapy; Z79.899 Other long term (current) drug therapy; I10 Essential (primary) hypertension; J44.9 Chronic obstructive pulmonary disease, unspecified; Z87.01 Personal history of pneumonia (recurrent); M19.90 Unspecified osteoarthritis, unspecified site; G89.29 Other chronic pain; Z96.651 Presence of right artificial knee joint; F17.210 Nicotine dependence, cigarettes, uncomplicated; F41.1 Generalized anxiety disorder; G47.00 Insomnia, unspecified; M54.9 Dorsalgia, unspecified; M54.2 Cervicalgia; F32.9 Major depressive disorder, single episode, unspecified; F41.9 Anxiety disorder, unspecified; Z90.710 Acquired absence of both cervix and uterus; Z90.49 Acquired absence of other specified parts of digestive tract; Z68.36 Body mass index [BMI] 36.0-36.9, adult; E03.9 Hypothyroidism, unspecified; E66.9 Obesity, unspecified; F17.200 Nicotine dependence, unspecified, uncomplicated
CPT/HCPCS: 36415 ×2; 36430; 85025 ×2; 85049; 86900; 86901; A9270 ×22; G0378 ×4; G0379; J7050; J8540 ×3; P9034; 99222; 99238

== ENCOUNTER 2021-09-28 21:07 | Emergency (ER) | payer OTHER ==
[2021-09-28] MEDS ORDERED: Ketorolac 30 MG/ML SDV IM ONE (21:25)
[2021-09-28] MEDS ORDERED: hydrOXYzine HCl 50 MG/ML SDV IM ONE (21:25)
[2021-09-28] MEDS ORDERED: Diatrizoate Meglumine/Diatrizoate Sodium 37% 30 ML Bottle PO ONE (22:50)
--- NOTE | 2021-10-01 10:57 | ER ---
DATE SEEN: 09/28/2021 CHIEF COMPLAINT: 1. Abdominal pain. 2. Headache. HISTORY OF PRESENT ILLNESS: Elizabeth is a 65-year-old female who has been doctoring at [facility] in [place]. She has had nephrotic syndrome; SAMUEL, needing dialysis; chronic headaches. [facility] with complaints of abdominal pain going on since this morning. She described the pain as moderate colic with nothing improving it. It is diffuse and generalized. She denied any nausea, constipation, or vomiting neither does she have any diarrhea. She also denied any urinary symptoms, e.g., dysuria, frequency, or urgency of urination. As regard to the headache, she states that it is chronic, bitemporal, moderate. She had a CT scan done of the head that was negative about a week ago. Additionally, she had a CT abdomen, pelvis, and chest done about 2 to 3 weeks ago at [facility] because of a high CA-125. At that time, no abnormalities were noted. REVIEW OF SYSTEMS: She denies fever or any systemic symptoms. PAST SURGICAL HISTORY: She has had hysterectomy. MEDICATIONS: 1. Clonazepam. 2. Requip. 3. Nortriptyline. 4. Levothyroxine. 5. Escitalopram. 6. Valsartan-hydrochlorothiazide. 7. Ambien. ALLERGIES: Augmentin. PAST MEDICAL HISTORY: As noted in the HPI. She has had nephrotic syndrome, SAMUEL, hypertension, anxiety disorder, restless legs syndrome. PHYSICAL EXAMINATION: VITAL SIGNS: Her blood pressure initially was 165/97, temperature of 97.6, heart rate initially was 129, respiratory rate was 20, and oxygenation was 99% while breathing room air. ENT: Negative. HEAD: Normocephalic. NECK: Supple. CARDIOVASCULAR: Normal. RESPIRATORY SYSTEM: Clear anteriorly. ABDOMEN: Nondistended. Diffusely tender on deep palpation, but no rebound, rigidity. Bowel sounds are present and normal. RECORDS: We called [facility] and obtained the CT scans that she had of the head and also of the chest, abdomen, and pelvis. We did a CBC, CMP, C-reactive protein, UA. White cell count was 27.5. Sodium was 132, creatinine 1.9. CRP is 10.9. Urine was negative with the exception of glucose and moderate occult blood. It did not meet the criteria for culture. EMERGENCY DEPARTMENT COURSE: The patient got 30 mg of IM Toradol and 50 of Vistaril IM and symptoms improved significantly. FINAL IMPRESSION: 1. Abdominal pain.Unclear aetiology 2. Headache. 3. Acute kidney injury. 4. Leukocytosis of unknown origin. PLAN: I obtained a CT of the abdomen and pelvis, which does not reveal any evidence of diverticulitis or acute abdomen, nothing could account for the abdominal pain. I was also not able to account for the high white cell count, and noted that previously had a white cell count of 15,000. She is currently taking 80 mg and has been taking for the last several weeks of prednisone because of nephrotic syndrome. This could explain elevation of white cell count, but possibly not all of it. I advised her and the caregiver to seek further treatment from the primary care physician tomorrow ( copies of labs and CT report provided to facilitate that process) or should symptoms get worse to return to the emergency room. /[id number] [place]/JENS BOWLES
== END 2021-09-28 23:50 | disposition home or self-care (01) ==
LOC: FB.ED 21:07
DX: N17.9 Acute kidney failure, unspecified (principal); R51.9 Headache, unspecified; D72.829 Elevated white blood cell count, unspecified; Z88.1 Allergy status to other antibiotic agents
CPT/HCPCS: 36415; 74176; 80053; 81001; 83690; 85025; 86140; 96372; 99284; J1885; J3410; Q9963

== ENCOUNTER 2025-04-17 19:08 | Emergency (ER) | payer MEDICARE, OTHER ==
[2025-04-17] MEDS: Sodium Chloride 0.9% 10 ML Syringe FLUSH PRN (19:30)
[2025-04-17 19:46] LABS: BASOPHILS PERCENT AUTO 0.3 % (0.2-1.5); HEMATOCRIT 40.6 % (34.2-48.2); HEMOGLOBIN 13.7 g/dL (11.4-15.5); LYMPHOCYTES ABSOLUTE AUTO 1.3 x10-3/uL (1.0-4.4); LYMPHOCYTES PERCENT AUTO 11.9 % (18.4-52.1); MEAN CORPUSCULAR HEMOGLOBIN 30.6 pg (23.9-33.9); MEAN CORPUSCULAR HGB CONC 33.7 g/dL (31.9-34.8); MEAN CORPUSCULAR VOLUME 90.9 fL (76.7-100.5); MEAN PLATELET VOLUME 8.8 fL (7.1-12.4); MONOCYTES PERCENT AUTO 9.1 % (4.4-15.7); NEUTROPHILS ABSOLUTE AUTO 8.6 x10-3/uL (1.5-6.3); NEUTROPHILS PERCENT AUTO 78.7 % (30.8-76.2); PLATELET COUNT,PLT 195 x10(3)uL (151-488); RED BLOOD CELL COUNT 4.46 x10(6)uL (3.60-5.20); RED CELL DISTRIBUTION WIDTH 14.6 % (12.3-16.5); WHITE BLOOD CELL COUNT,WBC 10.9 x10-3/uL (3.0-10.3)
[2025-04-17 19:54] LABS: BLOOD UREA NITROGEN,BUN 23 mg/dL (7-18); BUN/CREATININE RATIO 14.4 (9-20); CALCIUM 9.2 mg/dL (8.6-10.2); CARBON DIOXIDE,CO2 22 mmol/L (21-32); CHLORIDE,CL 99 mmol/L (100-110); CREATININE 1.6 mg/dL (0.55-1.02); EST CRCL DRUG DOSING (CG) 26.98 mL/min; ESTIMATED GFR 35 mL/min (>60); GLUCOSE RANDOM 108 mg/dL (80-116); POTASSIUM,K 3.8 mmol/L (3.5-5.3); SODIUM,NA 132 mmol/L (135-145)
[2025-04-17 20:05] LABS: ALBUMIN 3.3 g/dL (3.2-4.6); ALKALINE PHOSPHATASE 137 IU/L (56-112); BILIRUBIN TOTAL 0.5 mg/dL (0.1-1.3); PROTEIN TOTAL,TP 6.7 g/dL (6.0-8.0)
[2025-04-17 20:08] LABS: ALANINE AMINOTRANSFERASE,ALT 310 U/L (12-36); ASPARTATE AMNIOTRANSFERASE,AST 592 IU/L (5-25); CREATINE KINASE,CK < 7 IU/L (60-160)
[2025-04-17 20:09] LABS: TROPONIN I 166.6 pg/mL (4.0-60.3)
[2025-04-17 20:10] LABS: C-REACTIVE PROTEIN 2.94 mg/dL (<0.50)
[2025-04-17] MEDS: Sodium Chloride 0.9% 1,000 ML IV ONE ×2 (20:19→21:41)
[2025-04-17 20:36] LABS: BILIRUBIN,URINE SMALL (NEGATIVE); GLUCOSE,URINE NORMAL (NORMAL); KETONES,URINE NEGATIVE (NEGATIVE); LEUKOCYTE ESTERASE,URINE SMALL (NEGATIVE); NITRITE,URINE NEGATIVE (NEGATIVE); OCCULT BLOOD,URINE LARGE (NEGATIVE); PROTEIN,URINE 100 mg/dL (NEGATIVE); UROBILINOGEN,URINE NORMAL (NEGATIVE)
[2025-04-17 20:37] LABS: APPEARANCE,URINE TURBID (CLEAR); COLOR,URINE BROWN (YELLOW)
[2025-04-17] MEDS: Metoclopramide 10 MG/2 ML SDV IVPUSH ONE (20:41)
[2025-04-17] MEDS: Aspirin 81 MG Tab.Chew PO ONE (20:42)
[2025-04-17 20:49] LABS: BACTERIA,URINE MANY (NS); CALCIUM OXALATE CRYSTALS,URINE FEW (NS); HYALINE CASTS,URINE MODERATE (NS); RENAL EPITHELIAL CELLS,URINE FEW (NS)
[2025-04-17 20:53] LABS: RBC CASTS,URINE MODERATE (NS)
[2025-04-17] MEDS ORDERED: Naloxone 0.4 MG/ML SDV IVPUSH PRN (21:08)
[2025-04-17] MEDS: Morphine 4 MG/ML VIAL IVPUSH ONE (21:14)
[2025-04-17] MEDS: cefTRIAXone 2 GM Vial IVPUSH ONE (21:41)
[2025-04-17] MEDS: LORazepam 2 MG/ML SDV IVPUSH ONE (21:52)
== END 2025-04-17 22:20 ==
LOC: FB.ED 19:08
DX: E86.0 Dehydration (principal); I21.4 Non-ST elevation (NSTEMI) myocardial infarction; N39.0 Urinary tract infection, site not specified; R51.9 Headache, unspecified; R53.1 Weakness; I10 Essential (primary) hypertension; J44.9 Chronic obstructive pulmonary disease, unspecified; E03.9 Hypothyroidism, unspecified; E66.9 Obesity, unspecified; Z68.27 Body mass index [BMI] 27.0-27.9, adult; Z90.49 Acquired absence of other specified parts of digestive tract; Z90.710 Acquired absence of both cervix and uterus; Z87.891 Personal history of nicotine dependence; Z79.899 Other long term (current) drug therapy; Z79.890 Hormone replacement therapy; Z88.0 Allergy status to penicillin; Z88.8 Allergy status to other drugs, medicaments and biological substances
CPT/HCPCS: 36415; 51702; 70450; 72125; 73590-RT; 73610-RT; 73630-RT; 80053; 81001; 82550; 83605; 83735; 84443; 84484; 85025; 86140; 87040; 87086; 93005; 96361; 96374; 96375; 99285-25; A9270-GY; J0696; J2060; J2270; J2765; J7030